=== PATIENT | female | born 1945 | race Caucasian/White ===

== ENCOUNTER 2025-06-22 21:59 | Inpatient (IN) | payer MEDICARE, BC ==
[2025-06-22] MEDS ORDERED: Sodium Chloride 0.9% 10 ML Syringe FLUSH PRN (22:05)
[2025-06-22 22:19] LABS: BASOPHILS ABSOLUTE AUTO 0.04 K/uL (0.02-0.10); BASOPHILS PERCENT AUTO 0.6 % (0.0-0.5); EOSINOPHILS ABSOLUTE AUTO 0.05 K/uL (0.04-0.40); EOSINOPHILS PERCENT AUTO 0.8 % (1.0-5.0); LYMPHOCYTES ABSOLUTE AUTO 1.26 K/uL (1.50-4.00); LYMPHOCYTES PERCENT AUTO 19.5 % (20.0-40.0); MEAN PLATELET VOLUME 9.4 fL (6.0-10.0); MONOCYTES ABSOLUTE AUTO 0.52 K/uL (0.20-0.80); MONOCYTES PERCENT AUTO 8.1 % (3.0-10.0); NEUTROPHILS ABSOLUTE AUTO 4.58 K/uL (2.00-7.50); NEUTROPHILS PERCENT AUTO 71.0 % (45.0-70.0); PLATELET COUNT,PLT 217 K/uL (150-500); RED BLOOD CELL COUNT 2.86 M/uL (3.80-5.80); RED CELL DISTRIBUTION WIDTH 20.1 % (11.0-16.0); WHITE BLOOD CELL COUNT,WBC 6.5 K/uL (4.0-11.0)
[2025-06-22 22:40] LABS: INR 3.5 (1.0-3.5)
[2025-06-22 22:43] LABS: A/G RATIO 1.1 (0.8-2.0); ALANINE AMINOTRANSFERASE,ALT 25.0 U/L (12-78); ASPARTATE AMNIOTRANSFERASE,AST 25.0 U/L (15-37); BILIRUBIN TOTAL 0.3 mg/dL (0.0-1.0); BLOOD UREA NITROGEN,BUN 35.0 mg/dL (8-26); CARBON DIOXIDE,CO2 23.0 mmol/L (21.0-32.0); CHLORIDE,CL 111.0 mmol/L (98-107); CREATININE 0.96 mg/dL (0.55-1.02); EST CRCL DRUG DOSING (CG) 43.46 mL/min; ESTIMATED GFR 61.0 mL/min (>60); GLUCOSE RANDOM 113.0 mg/dL (74-100); POTASSIUM,K 5.1 mmol/L (3.5-5.1); PROTEIN TOTAL,TP 5.8 g/dL (6.4-8.2); SODIUM,NA 143.0 mmol/L (136-145); TROPONIN I HIGH SENSITIVITY 12.8 pg/ml (<=60.4)
[2025-06-22] MEDS: Furosemide 40 MG/4 ML VIAL IVPUSH ONE (22:56)
[2025-06-22 23:21] LABS: APPEARANCE,URINE TURBID (CLEAR); GLUCOSE,URINE NEGATIVE (NEGATIVE); OCCULT BLOOD,URINE LARGE (NEGATIVE)
[2025-06-22 23:27] LABS: SQUAMOUS EPITHELIAL CELLS,UR OCCASIONAL /HPF; WBC CLUMPS,URINE RARE /HPF
[2025-06-23] MEDS ORDERED: Ondansetron 4 MG/2 ML SDV IV PRN (01:11)
[2025-06-23 08:06] LABS: BASOPHILS ABSOLUTE AUTO 0.03 K/uL (0.02-0.10); BASOPHILS PERCENT AUTO 0.6 % (0.0-0.5); EOSINOPHILS ABSOLUTE AUTO 0.06 K/uL (0.04-0.40); EOSINOPHILS PERCENT AUTO 1.2 % (1.0-5.0); LYMPHOCYTES ABSOLUTE AUTO 1.02 K/uL (1.50-4.00); LYMPHOCYTES PERCENT AUTO 19.7 % (20.0-40.0); MEAN PLATELET VOLUME 9.9 fL (6.0-10.0); MONOCYTES ABSOLUTE AUTO 0.46 K/uL (0.20-0.80); MONOCYTES PERCENT AUTO 8.9 % (3.0-10.0); NEUTROPHILS ABSOLUTE AUTO 3.61 K/uL (2.00-7.50); NEUTROPHILS PERCENT AUTO 69.6 % (45.0-70.0); PLATELET COUNT,PLT 189 K/uL (150-500); RED BLOOD CELL COUNT 2.91 M/uL (3.80-5.80); RED CELL DISTRIBUTION WIDTH 19.8 % (11.0-16.0); WHITE BLOOD CELL COUNT,WBC 5.2 K/uL (4.0-11.0)
[2025-06-23 08:15] LABS: BLOOD UREA NITROGEN,BUN 32.0 mg/dL (8-26); CARBON DIOXIDE,CO2 24.7 mmol/L (21.0-32.0); CHLORIDE,CL 111.0 mmol/L (98-107); CREATININE 0.94 mg/dL (0.55-1.02); EST CRCL DRUG DOSING (CG) 44.38 mL/min; ESTIMATED GFR 62.0 mL/min (>60); GLUCOSE RANDOM 83.0 mg/dL (74-100); POTASSIUM,K 4.2 mmol/L (3.5-5.1); SODIUM,NA 143.0 mmol/L (136-145)
[2025-06-23 08:27] LABS: INR 3.4 (1.0-3.5)
[2025-06-23] MEDS: Furosemide 40 MG/4 ML VIAL IVPUSH ONE (09:37)
[2025-06-23] MEDS: Levofloxacin/Dextrose 5%-Water 750 MG in Levofloxacin/Dextrose 5%-Water 150 ML IV SCH (21:03)
[2025-06-24 08:19] LABS: BASOPHILS ABSOLUTE AUTO 0.03 K/uL (0.02-0.10); BASOPHILS PERCENT AUTO 0.6 % (0.0-0.5); EOSINOPHILS ABSOLUTE AUTO 0.13 K/uL (0.04-0.40); EOSINOPHILS PERCENT AUTO 2.5 % (1.0-5.0); LYMPHOCYTES ABSOLUTE AUTO 1.30 K/uL (1.50-4.00); LYMPHOCYTES PERCENT AUTO 25.2 % (20.0-40.0); MEAN PLATELET VOLUME 10.2 fL (6.0-10.0); MONOCYTES ABSOLUTE AUTO 0.61 K/uL (0.20-0.80); MONOCYTES PERCENT AUTO 11.8 % (3.0-10.0); NEUTROPHILS ABSOLUTE AUTO 3.09 K/uL (2.00-7.50); NEUTROPHILS PERCENT AUTO 59.9 % (45.0-70.0); PLATELET COUNT,PLT 191 K/uL (150-500); RED BLOOD CELL COUNT 3.43 M/uL (3.80-5.80); RED CELL DISTRIBUTION WIDTH 19.5 % (11.0-16.0); WHITE BLOOD CELL COUNT,WBC 5.2 K/uL (4.0-11.0)
[2025-06-24 08:42] LABS: INR 4.1 (1.0-3.5)
[2025-06-24 08:55] LABS: A/G RATIO 0.9 (0.8-2.0); ALANINE AMINOTRANSFERASE,ALT 21.0 U/L (12-78); ASPARTATE AMNIOTRANSFERASE,AST 17.0 U/L (15-37); BLOOD UREA NITROGEN,BUN 29.0 mg/dL (8-26); CARBON DIOXIDE,CO2 27.1 mmol/L (21.0-32.0); CHLORIDE,CL 109.0 mmol/L (98-107); CREATININE 1.11 mg/dL (0.55-1.02); EST CRCL DRUG DOSING (CG) 37.59 mL/min; ESTIMATED GFR 51.0 mL/min (>60); GLUCOSE RANDOM 89.0 mg/dL (74-100); POTASSIUM,K 4.5 mmol/L (3.5-5.1); PROTEIN TOTAL,TP 5.2 g/dL (6.4-8.2); SODIUM,NA 144.0 mmol/L (136-145)
[2025-06-24 09:25] LABS: BILIRUBIN TOTAL 0.4 mg/dL (0.0-1.0)
[2025-06-25 07:55] LABS: BASOPHILS ABSOLUTE AUTO 0.02 K/uL (0.02-0.10); BASOPHILS PERCENT AUTO 0.3 % (0.0-0.5); EOSINOPHILS ABSOLUTE AUTO 0.09 K/uL (0.04-0.40); EOSINOPHILS PERCENT AUTO 1.5 % (1.0-5.0); LYMPHOCYTES ABSOLUTE AUTO 0.97 K/uL (1.50-4.00); LYMPHOCYTES PERCENT AUTO 16.2 % (20.0-40.0); MEAN PLATELET VOLUME 9.7 fL (6.0-10.0); MONOCYTES ABSOLUTE AUTO 0.68 K/uL (0.20-0.80); MONOCYTES PERCENT AUTO 11.4 % (3.0-10.0); NEUTROPHILS ABSOLUTE AUTO 4.23 K/uL (2.00-7.50); NEUTROPHILS PERCENT AUTO 70.6 % (45.0-70.0); PLATELET COUNT,PLT 188 K/uL (150-500); RED BLOOD CELL COUNT 3.32 M/uL (3.80-5.80); RED CELL DISTRIBUTION WIDTH 19.8 % (11.0-16.0); WHITE BLOOD CELL COUNT,WBC 6.0 K/uL (4.0-11.0)
[2025-06-25 08:12] LABS: INR 3.5 (1.0-3.5)
[2025-06-25 08:33] LABS: ALANINE AMINOTRANSFERASE,ALT 20.0 U/L (12-78); ASPARTATE AMNIOTRANSFERASE,AST 13.0 U/L (15-37); BILIRUBIN TOTAL 0.4 mg/dL (0.0-1.0); BLOOD UREA NITROGEN,BUN 28.0 mg/dL (8-26); CARBON DIOXIDE,CO2 26.1 mmol/L (21.0-32.0); CHLORIDE,CL 111.0 mmol/L (98-107); CREATININE 1.02 mg/dL (0.55-1.02); EST CRCL DRUG DOSING (CG) 40.9 mL/min; ESTIMATED GFR 56.0 mL/min (>60); GLUCOSE RANDOM 102.0 mg/dL (74-100); POTASSIUM,K 4.4 mmol/L (3.5-5.1); PRO B-TYPE NATRIUR PEPT,BNPPRO 1263.0 pg/mL (0-450); SODIUM,NA 144.0 mmol/L (136-145)
[2025-06-25 09:09] LABS: A/G RATIO 0.9 (0.8-2.0); PROTEIN TOTAL,TP 5.1 g/dL (6.4-8.2)
[2025-06-25] MEDS: Levofloxacin/Dextrose 5%-Water 150 ML IV SCH ×2 (09:36→18:13)
[2025-06-26 08:15] LABS: INR 2.3 (1.0-3.5)
[2025-06-26 21:44] LABS: IRON BINDING CAPACITY TOTAL 342 ug/dL (240-450); IRON,SERUM OR PLASMA 15 ug/dL (28-170); TRANSFERRIN SATURATION 4 %sat (20-50)
[2025-06-27 08:31] LABS: INR 2.1 (1.0-3.5)
[2025-06-27] MEDS ORDERED: Sodium Chloride 0.9% 10 ML Syringe FLUSH PRN (12:35)
[2025-06-27] MEDS: Sodium Chloride 0.9% 50 ML SDV FLUSH ONE (12:36)
[2025-06-27] MEDS: Iopamidol 612 MG/ML 100 ML Bottle IV SCH (12:36)
[2025-06-27] MEDS ORDERED: Furosemide 20 MG/2 ML VIAL IVPUSH SCH (18:30)
[2025-06-27] MEDS: Furosemide 20 MG/2 ML VIAL IVPUSH SCH (19:36)
[2025-06-28 09:21] LABS: INR 1.7 (1.0-3.5)
== END 2025-06-28 17:10 | DRG 812 ==
LOC: LB.ED 21:59 → LB.MS 23:00 → UNDOADMIN 23:00 → LB.MS 23:39
PROVIDERS: ADMIT Nurse Practitioner Family; ATTEND Nurse Practitioner Family
PROC: 30233H1 Transfusion of Nonautologous Whole Blood into Peripheral Vein, Percutaneous Approach (ICD-10-PCS; principal; 2025-06-23)
PROC: 3E03329 Introduction of Other Anti-infective into Peripheral Vein, Percutaneous Approach (ICD-10-PCS; 2025-06-23)
DX: D64.9 Anemia, unspecified (principal); R53.1 Weakness; D62 Acute posthemorrhagic anemia; R06.01 Orthopnea; R07.89 Other chest pain; I10 Essential (primary) hypertension; I48.91 Unspecified atrial fibrillation; I48.20 Chronic atrial fibrillation, unspecified; C67.9 Malignant neoplasm of bladder, unspecified; I11.0 Hypertensive heart disease with heart failure; I50.9 Heart failure, unspecified; R31.29 Other microscopic hematuria; M19.90 Unspecified osteoarthritis, unspecified site; R79.89 Other specified abnormal findings of blood chemistry; R91.8 Other nonspecific abnormal finding of lung field; Z79.01 Long term (current) use of anticoagulants; Z79.899 Other long term (current) drug therapy; Z79.1 Long term (current) use of non-steroidal anti-inflammatories (NSAID); Z79.2 Long term (current) use of antibiotics; Z95.3 Presence of xenogenic heart valve
CPT/HCPCS: 36415; 36430; 71045; 74178; 80048; 80053; 81001; 82607; 82728; 83540; 83550; 83880; 84484; 85018; 85025; 85610; 86850; 86900; 86901; 86920; 86922; 87086; 93005; 93010; 94640; 96374; 97110-GP; 97116-GP; 97162-GP; 97530-GP; 99223; 99232; 99239; 99285-25; A0425; A0428; A0429; A9270-GY; J1938; J1956; P9016; Q9967